=== PATIENT | male | born 1985 | race Caucasian/White ===

== ENCOUNTER → 2016-03-11 | Outpatient (CLI) | payer BC ==
[~2016-03-11] MED LIST: MOME6000 NAE; PRT/20 PO
== END | disposition home or self-care (01) ==
LOC: C.RDSM 16:01
PROVIDERS: ATTEND Family Medicine Sports Medicine
DX: M54.2 Cervicalgia (principal)

== ENCOUNTER → 2016-04-30 | Outpatient (CLI) | payer BC | END | disposition home or self-care (01) | LOC: C.LABSPEC 12:08 | PROVIDERS: ATTEND Internal Medicine Gastroenterology | DX: R19.7 Diarrhea, unspecified (principal) ==

== ENCOUNTER 2016-09-17 01:48 | Emergency (ER) | payer BC ==
[~2016-09-17] VITALS: Ht 188 cm; Wt 82.0 kg
[2016-09-17 01:54] VITALS: TEMP 37.1; Ht 188 cm; Wt 82.0 kg
[2016-09-17 02:48] LABS: BASO % 0.6 %; BASO ABS # 0.03 K/uL (0-0.2); COMPLETE YES; EOS % 7.2 %; HEMATOCRIT 44.3 % (42-52); LYMPH % 32.9 %; LYMPH ABS # 1.79 K/uL (1.2-3.4); MEAN CORPUSCULAR HEMOGLOBIN 30.9 pg (25-34); MEAN CORPUSCULAR HGB CONC 34.3 g/dl (32-36); MEAN PLATELET VOLUME 9.6 fL (7.4-10.4); MONO % 5.7 %; NEUT % 53.6 %; PLATELET COUNT 226 K/uL (130-400); RED BLOOD COUNT 4.92 M/uL (4.7-6.1); WHITE BLOOD COUNT 5.44 K/uL (4.8-10.8)
[2016-09-17] MEDS ORDERED: MOME6000 NAE (03:12)
[2016-09-17 03:13] LABS: BUN/CREATININE RATIO 13.8 (10-20); CALCIUM 8.2 mg/dl (8.5-10.1); CREATININE 0.96 mg/dl (0.60-1.40); POTASSIUM 3.7 mmol/L (3.5-5.1)
[2016-09-17 03:14] LABS: BENZODIAZEPINE, URINE NEG (NEG); COCAINE,URINE NEG (NEG); PHENCYCLIDINE, URINE NEG (NEG)
[2016-09-17] MEDS ORDERED: PRT/20 PO (03:20)
[2016-09-17] MEDS ORDERED: ONDANSETRON 4MG OD TAB PO STA (04:02)
[2016-09-17 04:08] VITALS: BP 109/70; PULSE 68; O2SAT 99
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
== END 2016-09-17 04:08 | disposition home or self-care (01) ==
LOC: EDBD 01:48 → C.EDB 01:49
DX: F10.929 Alcohol use, unspecified with intoxication, unspecified (principal)